=== PATIENT | female | born 1970 | race Caucasian/White ===

== ENCOUNTER 2022-04-30 09:21 | Day surgery (SDC) | payer OTHER ==
[2022-04-28 15:31] VITALS: BMI 41.3
[2022-04-30] MEDS ORDERED: PROPOFOL 40 ML ONE (09:58)
[2022-04-30] MEDS ORDERED: LIDOCAINE HCL/PF 2% SDV 5ML VIAL ONE (09:58)
[2022-04-30 11:18] VITALS: TEMP 97.8
[2022-04-30 11:41] VITALS: BP 105/64; PULSE 84; RESP 18
== END 2022-04-30 11:43 | disposition home or self-care (01) ==
LOC: FASU-ENDO 09:21
PROVIDERS: ATTEND Internal Medicine Gastroenterology
PROC: 0DJD8ZZ Inspection of Lower Intestinal Tract, Via Natural or Artificial Opening Endoscopic (ICD-10-PCS; principal; 2022-04-30 10:37)
DX: Z12.11 Encounter for screening for malignant neoplasm of colon (principal); Z83.71 Family history of colonic polyps; K57.30 Diverticulosis of large intestine without perforation or abscess without bleeding; K64.1 Second degree hemorrhoids
CPT/HCPCS: 82962

== ENCOUNTER 2023-06-24 09:51 | Day surgery (SDC) | payer OTHER ==
[2023-06-10 15:09] VITALS: BMI 41.3
[2023-06-24] MEDS ORDERED: ALBUTEROL SO4 HFA INHALER IH ONE (10:47)
[2023-06-24] MEDS ORDERED: EPINEPHrine 1:10,000 (P-F SYR) 1 MG/10 ML DISP.SYRIN ONE (10:58)
[2023-06-24 11:18] VITALS: RESP 18
[2023-06-24 11:50] VITALS: BP 115/77; PULSE 73; TEMP 97.9
== END 2023-06-24 11:55 | disposition home or self-care (01) ==
LOC: FASU-ENDO 09:51
PROVIDERS: ATTEND Internal Medicine Gastroenterology
PROC: 0DB68ZX Excision of Stomach, Via Natural or Artificial Opening Endoscopic, Diagnostic (ICD-10-PCS; 2023-06-24)
PROC: 0DB48ZX Excision of Esophagogastric Junction, Via Natural or Artificial Opening Endoscopic, Diagnostic (ICD-10-PCS; 2023-06-24)
PROC: 0DB98ZX Excision of Duodenum, Via Natural or Artificial Opening Endoscopic, Diagnostic (ICD-10-PCS; principal; 2023-06-24 10:52)
DX: K31.7 Polyp of stomach and duodenum (principal); K29.50 Unspecified chronic gastritis without bleeding; R10.13 Epigastric pain
CPT/HCPCS: 81025; 82962; 88305-TC; 88341-TC; 88342-TC